=== PATIENT | male | born 1975 | race Caucasian/White ===

== ENCOUNTER 2019-01-03 21:29 | Emergency (ER) | payer MEDICARE ==
[2019-01-03] MEDS ORDERED: TORAdol 30 mg Injection IV ONE (23:05)
[2019-01-03] MEDS ORDERED: Zofran 4 MG/2 ML VIAL IV ONE (23:05)
--- NOTE | 2019-01-03 23:05 | ERPHSYRPT ---
- History of Present Illness Time Seen by Provider: 01/03/19 23:00 Historian: patient, family Exam Limitations: no limitations Patient Subjective Stated Complaint: pt is alert and oriented. pt is ambulatory with a steady gait. pt states that he had chest pain 2 days ago and took nitro which helped. pt has had bilat shoulder pain since then. pt radial pulses equal and strong. pt heart sounds regular. pt skin is pwd. pt has heart history. pt states he has had 3 heart attacks. pt denies n/v/d. lightheadedness, dizziness. Triage Nursing Assessment: see above Physician History: pt presents after an episode a few days ago with laughing which strained his ribs abd has reproducible right rib pain and right scapular pain with palpation ; however pt had known CAD and is sceduled for cath next week and has previously had angina relieved by nitro; the current symptoms and findings appear to be distinct from the patients Cardiac condition . Timing/Duration: day(s) Activities at Onset: none Quality: other (no chest pain other than rib tenderness today) Chest Pain Radiation: no radiation Severity of Pain-Max: none Severity of Pain-Current: none Modifying Factors: Improves With: movement Associated Symptoms: hurts to breathe Prior Chest Pain/Cardiac Workup: angina, recently seen/treated Nitro Today/Relief: no nitro taken today Aspirin Treatment Today: 81 mg x 1 Allergies/Adverse Reactions: No Known Drug Allergies Allergy (Unverified 01/03/19 22:43) Immunizations Up to Date: Yes - Review of Systems Constitutional: No Fever, No Chills Eyes: No Symptoms Ears, Nose, & Throat: No Symptoms Respiratory: No Cough, No Dyspnea Cardiac: Chest Pain, No Edema, No Syncope Abdominal/Gastrointestinal: No Abdominal Pain, No Nausea, No Vomiting, No Diarrhea Genitourinary Symptoms: No Dysuria Musculoskeletal: No Back Pain, No Neck Pain Skin: No Rash Neurological: No Dizziness, No Focal Weakness, No Sensory Changes Psychological: No Symptoms Endocrine: No Symptoms Hematologic/Lymphatic: No Symptoms Immunological/Allergic: No Symptoms All Other Systems: Reviewed and Negative - Past Medical History Pertinent Past Medical History: Yes Neurological History: Migraines ENT History: No Pertinent History Cardiac History: Myocardial Infarction ([place]) Respiratory History: No Pertinent History Endocrine Medical History: No Pertinent History Musculoskeletal History: No Pertinent History GI Medical History: No Pertinent History History: No Pertinent History Psycho-Social History: No Pertinent History Male Reproductive Disorders: No Pertinent History - Past Surgical History Past Surgical History: Yes Neuro Surgical History: No Pertinent History Cardiac: No Pertinent History Respiratory: No Pertinent History Gastrointestinal: No Pertinent History Genitourinary: No Pertinent History Musculoskeletal: No Pertinent History Male Surgical History: Testicular Surgery - Social History Smoking Status: Current every day smoker How long have you smoked: 30 years Drug Use: none Patient Lives Alone: No - Nursing Vital Signs Nursing Vital Signs: Initial Vital Signs Temperature 99.0 F 01/03/19 22:36 Pulse Rate 83 01/03/19 22:36 Respiratory Rate 16 01/03/19 22:36 Blood Pressure 120/74 01/03/19 22:36 O2 Sat by Pulse Oximetry 98 01/03/19 22:36 Pain Scale Pain Intensity 3 - Physical Exam General Appearance: no apparent distress, alert Eye Exam: PERRL/EOMI, eyes nml inspection Ears, Nose, Throat Exam: normal ENT inspection, moist mucous membranes Neck Exam: normal inspection, non-tender, supple, full range of motion Respiratory Exam: normal breath sounds, chest tenderness (reproduces chest wall/ rib pain exactly- no cardiac CP today), lungs clear, No respiratory distress Cardiovascular Exam: regular rate/rhythm, normal heart sounds Gastrointestinal/Abdomen Exam: soft, No tenderness, No mass Back Exam: normal inspection, No CVA tenderness, No vertebral tenderness Extremity Exam: normal inspection, normal range of motion Neurologic Exam: alert, oriented x 3, cooperative, normal mood/affect, sensation nml, No motor deficits Skin Exam: normal color, warm, dry SpO2: 98 - Course Nursing assessment & vital signs reviewed: Yes EKG Interpreted by Me: Sinus Rhythm, Non-specific ST Changes Ordered Tests: Active Orders 24 hr Category Date Time Status Cargo Bracer STAT Care 01/03/19 23:06 Active EKG-ER Only STAT Care 01/03/19 23:05 Active IV Insertion STAT Care 01/03/19 23:05 Active Pulse Oximetry (ED) STAT Care 01/03/19 23:05 Active CHEST 1 VIEW (PORTABLE) Stat Exams 01/03/19 23:06 Taken CBC W DIFF Stat Lab 01/03/19 23:39 Completed CMP Stat Lab 01/03/19 23:39 Completed D-DIMER QUANTITATION Stat Lab 01/03/19 23:39 Completed LIPASE Stat Lab 01/03/19 23:39 Completed Lactic Acid Stat Lab 01/03/19 23:05 Completed NT PRO BNP Stat Lab 01/03/19 23:39 Completed TROPONIN Q3H Lab 01/04/19 02:15 Ordered TROPONIN Q3H Lab 01/04/19 05:15 Ordered TROPONIN Q3H Lab 01/04/19 08:15 Ordered TROPONIN Q3H Lab 01/04/19 11:15 Ordered TROPONIN Stat Lab 01/03/19 23:39 Completed UA W/RFX UR CULTURE Stat Lab 01/04/19 00:43 Ordered Medication Summary Generic Name Dose Route Start Last Admin Trade Name Freq PRN Reason Stop Dose Admin Sodium Chloride 1,000 mls @ 100 mls/hr 01/03/19 23:15 01/03/19 23:21 Sodium Chloride 0.9% 1000 Ml IV 02/02/19 23:14 100 mls/hr .Q10H JOCELYN Administration Discontinued Medications Generic Name Dose Route Start Last Admin Trade Name Freq PRN Reason Stop Dose Admin Ketorolac Tromethamine 30 mg 01/03/19 23:05 01/03/19 23:21 Toradol 30 Mg Injection IV 01/03/19 23:06 30 mg STAT ONE Administration Ketorolac Tromethamine Confirm 01/03/19 23:13 Toradol 30 Mg Injection Administered 01/03/19 23:14 Dose 30 mg .ROUTE .STK-MED ONE Ondansetron HCl 4 mg 01/03/19 23:05 01/03/19 23:21 Zofran 4 Mg/2 Ml Vial IV 01/03/19 23:06 4 mg STAT ONE Administration Ondansetron HCl Confirm 01/03/19 23:13 Zofran 4 Mg/2 Ml Vial Administered 01/03/19 23:14 Dose 4 mg .ROUTE .STK-MED ONE Lab/Rad Data: Laboratory Result Diagrams 01/03/19 23:39 01/03/19 23:39 Laboratory Results 01/04/19 01/03/19 01/03/19 Range/Units 00:01 23:39 23:39 WBC (4.0-10.5) K/mm3 RBC (4.1-5.6) M/mm3 Hgb (12.5-18.0) gm/dl Hct (42-50) % MCV (78-100) fl MCH (26-32) pg MCHC (32-36) g/dl RDW (11.5-14.0) % Plt Count (150-450) K/mm3 MPV (6-9.5) fl Gran % (36.0-66.0) % Eos # (Auto) (0-0.5) Absolute Lymphs (auto) (1.0-4.6) Absolute Monos (auto) (0.0-1.3) Lymphocytes % (24.0-44.0) % Monocytes % (0.0-12.0) % Eosinophils % (0.00-5.0) % Basophils % (0.0-0.4) % Absolute Granulocytes (1.4-6.9) Basophils # (0-0.4) D-Dimer 375 (215-500) ng/mL Sodium 140 (137-145) mmol/L Potassium 3.7 (3.5-5.1) mmol/L Chloride 104 (98-107) mmol/L Carbon Dioxide 27 (22-30) mmol/L Anion Gap 12.7 (5-15) MEQ/L BUN 10 (9-20) mg/dL Creatinine 0.84 (0.66-1.25) mg/dL Estimated GFR > 60.0 ML/MIN Glucose 91 (74-106) mg/dL Lactic Acid 1.6 (0.4-2.0) Calcium 9.4 (8.4-10.2) mg/dL Total Bilirubin 0.20 (0.2-1.3) mg/dL AST 20 (17-59) U/L ALT 41 (0-50) U/L Alkaline Phosphatase 81 (38-126) U/L Troponin I < 0.012 (0.000-0.034) ng/mL NT-Pro-B Natriuret Pep 22.0 (0-450) pg/mL Serum Total Protein 7.2 (6.3-8.2) g/dL Albumin 3.9 (3.5-5.0) g/dL Lipase 244 (23-300) U/L 01/03/19 Range/Units 23:39 WBC 9.0 (4.0-10.5) K/mm3 RBC 4.84 (4.1-5.6) M/mm3 Hgb 14.8 (12.5-18.0) gm/dl Hct 45.5 (42-50) % MCV 94.0 (78-100) fl MCH 30.6 (26-32) pg MCHC 32.5 (32-36) g/dl RDW 13.7 (11.5-14.0) % Plt Count 310 (150-450) K/mm3 MPV 10.9 H (6-9.5) fl Gran % 50.1 (36.0-66.0) % Eos # (Auto) 0.22 (0-0.5) Absolute Lymphs (auto) 3.39 (1.0-4.6) Absolute Monos (auto) 0.80 (0.0-1.3) Lymphocytes % 37.7 (24.0-44.0) % Monocytes % 8.9 (0.0-12.0) % Eosinophils % 2.4 (0.00-5.0) % Basophils % 0.9 (0.0-0.4) % Absolute Granulocytes 4.51 (1.4-6.9) Basophils # 0.08 (0-0.4) D-Dimer (215-500) ng/mL Sodium (137-145) mmol/L Potassium (3.5-5.1) mmol/L Chloride (98-107) mmol/L Carbon Dioxide (22-30) mmol/L Anion Gap (5-15) MEQ/L BUN (9-20) mg/dL Creatinine (0.66-1.25) mg/dL Estimated GFR ML/MIN Glucose (74-106) mg/dL Lactic Acid (0.4-2.0) Calcium (8.4-10.2) mg/dL Total Bilirubin (0.2-1.3) mg/dL AST (17-59) U/L ALT (0-50) U/L Alkaline Phosphatase (38-126) U/L Troponin I (0.000-0.034) ng/mL NT-Pro-B Natriuret Pep (0-450) pg/mL Serum Total Protein (6.3-8.2) g/dL Albumin (3.5-5.0) g/dL Lipase (23-300) U/L - Progress Progress: improved, re-examined Air Movement: good Progress Note: 01/04/19 01:09 pt is pain free now and declines further workup or admission at this time after discussion of risk/benefit and is aware that there is some risk that his cardiac condition can have crossover with his muscle strain symptoms which can be difficult to distinguish at times; and that there could be cardiac events evolving undetected; he has the capacity to make that choice - he will keep his cath appt and return meantime if any further symptoms of any kind. 01/04/19 01:15 Blood Culture(s) Obtained: No Antibiotics given: No Counseled pt/family regarding: lab results, diagnosis, need for follow-up, rad results - Departure Departure Disposition: Home Clinical Impression: right rib/scapular strain, Hx of coronary artery disease Condition: Good Critical Care Time: No Additional Instructions: followup with your Dr as planned for your cardiac cath workup ; return meantime if any concerns; Prescriptions: Orphenadrine Citrate 100 mg [Norflex 100 MG Tablet] 100 mg PO BID PRN #14 tab
[2019-01-03] MEDS ORDERED: Sodium Chloride 0.9% 1000 ML 1,000 ML ONE (23:13)
[2019-01-03] MEDS ORDERED: TORAdol 30 mg Injection ONE (23:13)
[2019-01-03] MEDS ORDERED: Zofran 4 MG/2 ML VIAL ONE (23:13)
[2019-01-03] MEDS ORDERED: Sodium Chloride 0.9% 1000 ML 1,000 ML IV SCH (23:15)
[2019-01-03 23:40] LABS: BASOPHIL % 0.9 % (0.0-0.4); Basophil (Absolute #) 0.08 (0-0.4); Eosinophil % 2.4 % (0.00-5.0); Eosinophil (Absolute #) 0.22 (0-0.5); Granulocyte Absolute (ANC) 4.51 (1.4-6.9); Granulocytes % 50.1 % (36.0-66.0); Hematocrit 45.5 % (42-50); Hemoglobin 14.8 gm/dl (12.5-18.0); Lymphocyte (Absolute #) 3.39 (1.0-4.6); Lymphocytes % 37.7 % (24.0-44.0); Mean Corpuscular Hemoglobin 30.6 pg (26-32); Mean Corpuscular Hgb Concent. 32.5 g/dl (32-36); Mean Platelet Volume 10.9 fl (6-9.5); Monocytes % 8.9 % (0.0-12.0); Platelet Count 310 K/mm3 (150-450); Red Blood Count 4.84 M/mm3 (4.1-5.6); Red Cell Distribution Width 13.7 % (11.5-14.0)
[2019-01-03 23:57] LABS: Potassium 3.7 mmol/L (3.5-5.1)
[2019-01-04 00:18] LABS: ALBUMIN 3.9 g/dL (3.5-5.0); BLOOD UREA NITROGEN 10 mg/dL (9-20); CHLORIDE 104 mmol/L (98-107); Calcium 9.4 mg/dL (8.4-10.2); Carbon Dioxide 27 mmol/L (22-30); Creatinine 1 0.84 mg/dL (0.66-1.25); Glucose 91 mg/dL (74-106); SGOT/AST 20 U/L (17-59); SODIUM 140 mmol/L (137-145); Total Protein 7.2 g/dL (6.3-8.2)
[2019-01-04 00:19] LABS: ALKALINE PHOSPHATASE 81 U/L (38-126); LIPASE 244 U/L (23-300); SGPT/ALT 41 U/L (0-50); TROPONIN < 0.012 ng/mL (0.000-0.034)
[2019-01-04 00:20] LABS: ANION GAP 12.7 MEQ/L (5-15)
[2019-01-04 01:27] VITALS: BP 112/68; PULSE 79; O2SAT 96
--- NOTE | 2019-01-04 08:11 | XRAY ---
Indication: Chest pain. Comparison: None Portable apical lordotic chest demonstrates minimal bibasilar atelectasis/scarring, right perihilar calcified granuloma, and azygos lobe. No focal infiltrate, consolidation, or large effusion. Heart is not enlarged. Bony thorax intact with old left clavicle fracture. Impression: Nonacute chest with chronic features.
== END 2019-01-04 01:34 | disposition home or self-care (01) ==
LOC: ED 21:29
DX: S23.41XA Sprain of ribs, initial encounter (principal); S43.81XA Sprain of other specified parts of right shoulder girdle, initial encounter; X50.3XXA Overexertion from repetitive movements, initial encounter; Y93.89 Activity, other specified; I25.10 Atherosclerotic heart disease of native coronary artery without angina pectoris
CPT/HCPCS: 36000; 36415; 71045; 80053; 83605; 83690; 83880; 84484; 85025; 85379; 93005; 93041; 96360; 96361; 96374; 96375; 99284; J1885; J2405